=== PATIENT | female | born 1990 | race Caucasian/White ===

== ENCOUNTER 2019-07-17 12:05 | Emergency (ER) | payer OTHER ==
[2019-07-17 12:12] VITALS: BMI 27.4
--- NOTE | 2019-07-17 12:16 | PDOC ---
History of Present Illness - General Chief Complaint: Suicidal Stated Complaint: DEPRESSION, ANXIETY History Source: Patient Exam Limitations: No Limitations - History of Present Illness Initial Comments: 07/17/19 12:59 28 yo F with a hx of anxiety and depression (previously diagnosed; she does not remember the name of the psychiatrist; was on anti-depressants but has not used in "awhile") and PCOS (recently started on OCP) presents to the emergency department with suicidal ideation with plan. Per the patient, she lives with her mother who is diagnosed with cancer. Over the past few months, she states she has had worsening depression due to issues in her family and relationship she was in. The patient endorses that over the past "day or so" the thoughts of harming herself have intensified and she feels "unsafe to be alone". She states she has thought of harming herself. When I asked do you have thoughts of killing yourself, she said "yes". When I asked if she had a plan, she endorsed having multiple. When I asked her to elaborate on those plans, she declined. I asked the patient if ingestion is one of the plans and she said "yes". The patient denies previous psychiatric admissions. Endorses cutting herself in the past but denies overdose. Endorses the following on ROS: lightheadedness, chest tightness, depression, anxiety, chills, headaches, and nausea. Denies the following: fevers, visual disturbances, ears/nose/throat pain, SOB, abdominal pain, dysuria, hematuria, diarrhea, and leg pain/swelling. Allergies: NKDA Meds: OCP Social: ENdorses tobacco use. Uses alcohol. Uses marijuana but "not recently". 07/17/19 13:00 Past History - Past Medical History Allergies/Adverse Reactions: Allergies Allergy/AdvReac Type Severity Reaction Status Date / Time No Known Allergies Allergy Verified 07/17/19 12:11 COPD: No Psychiatric Problems: Yes (depression and anxiety) Other medical history: PCOS - Psycho Social/Smoking Cessation Hx Smoking History: Never smoked Review of Systems - Review of Systems Able to Perform ROS?: Yes Is the patient limited [place] proficient: No Constitutional: Yes: Chills. No: Diaphoresis, Fever, Weakness HEENTM: No: Eye Pain, Ear Pain, Nose Pain, Throat Pain, Mouth Pain Respiratory: No: Cough, Shortness of Breath, Hemoptysis Cardiac (ROS): Yes: Lightheadedness, Chest Tightness. No: Chest Pain, Palpitations ABD/GI: Yes: Nausea. No: Constipated, Diarrhea, Rectal Bleeding, Vomiting, Tarry Stools : No: Burning, Dysuria, Hematuria Musculoskeletal: No: Back Pain, Joint Pain, Neck Pain Integumentary: No: Bruising, Erythema, Rash Neurological: Yes: Headache. No: Numbness, Tingling, Tremors Psychiatric: No: Change in Appetite *Physical Exam - Vital Signs Last Vital Signs Temp Pulse Resp BP Pulse Ox 99 H 18 130/86 100 07/17/19 12:08 07/17/19 12:08 07/17/19 12:08 07/17/19 12:08 - Physical Exam General Appearance: Yes: Nourished, Appropriately Dressed. No: Apparent Distress, Intoxicated HEENT: positive: EOMI, GABRIELLE, Normal Voice, Symmetrical, Pharynx Normal, Hearing Grossly Normal. negative: Pale Conjunctivae, Scleral Icterus (R), Scleral Icterus (L), Muffled/Hoarse voice, Pharyngeal Erythema, Tonsillar Exudate, Tonsillar Erythema, Nasal Congestion, Rhinorrhea, Excessive drooling Neck: positive: Trachea midline, Supple. negative: Tender, Lymphadenopathy (R) , Lymphadenopathy (L), Tender lateral, Tender midline Respiratory/Chest: positive: Lungs Clear, Normal Breath Sounds. negative: Chest Tender, Respiratory Distress, Accessory Muscle Use, Crackles, Rales, Rhonchi, Stridor, Wheezing Cardiovascular: positive: Regular Rhythm, S1, S2, Tachycardia. negative: Systolic Murmur Gastrointestinal/Abdominal: positive: Normal Bowel Sounds, Flat, Soft. negative : Tender, Guarding, Rebound Lymphatic: negative: Adenopathy Musculoskeletal: positive: Normal Inspection. negative: CVA Tenderness, Vertebral Tenderness Extremity: positive: Normal Capillary Refill, Normal Inspection, Normal Range of Motion. negative: Tender, Swelling Integumentary: positive: Normal Color, Dry, Warm. 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 negative: Normal Mood/Affect (depressed mood. flat affect) ED Treatment Course - LABORATORY CBC & Chemistry Diagram: 07/17/19 14:10 07/17/19 14:10 Medical Decision Making - Medical Decision Making 07/17/19 13:[address] Ariza regarding the patient at approximately 12:55 pm. He states he will see the patient this afternoon. 07/17/19 13:42 I explained to the patient during the history and physical that because she endorses suicidal thoughts and states she has plans that she will need to be placed on a 1:1 observation. I also explained to her that her personal belongings will be stored including her phone. I was notified by nurse Promise that the patient wanted to speak to me. Promise was with me during the initial HP encounter. The patient was upset that we were taking her phone because she needed to call her mom still and possibly will have a phone call from her potential employer. I explained to the patient that it is hospital policy to have belongings secured. The patient stated that she never said she wanted to kill herself, contrary to her statement of wanting to kill herself to myself and Promise as witness. This was relayed to the patient. I again explained the need for involuntary hold until psychiatry sees her. She understood and accepted the plan at this time. Initial Vital Signs Pulse Resp BP Pulse Ox 99 H 18 130/86 100 07/17/19 12:08 07/17/19 12:08 07/17/19 12:08 07/17/19 12:08 Laboratory Tests 07/17/19 07/17/19 07/17/19 13:16 14:10 14:10 WBC RBC Hgb Hct MCV MCH MCHC RDW Plt Count MPV Absolute Neuts (auto) Neutrophils % Lymphocytes % Monocytes % Eosinophils % Basophils % Nucleated RBC % VBG pH POC VBG pCO2 POC VBG pO2 VBG HCO3 VBG O2 Sat (Kj) VBG Base Excess Sodium Potassium Chloride Carbon Dioxide Anion Gap BUN Creatinine Est GFR (CKD-EPI)AfAm Est GFR (CKD-EPI)NonAf Random Glucose Calcium Total Bilirubin AST ALT Alkaline Phosphatase Creatine Kinase Troponin I Total Protein Albumin TSH Serum , Qual Urine Color Urine Appearance Urine pH Ur Specific [place]reid Urine Protein Urine Glucose (UA) Urine Ketones Urine Blood Urine Nitrite Urine Bilirubin Urine Urobilinogen Ur Leukocyte Esterase Salicylates < 1.7 L Opiates Screen Negative Methadone Screen Negative Acetaminophen <2.0 Barbiturate Screen Negative Phencyclidine Screen Negative Ur Amphetamines Screen Negative MDMA (Ecstasy) Screen Negative Benzodiazepines Screen Negative Cocaine Screen Negative U Marijuana (THC) Screen Negative Alcohol, Quantitative < 3 07/17/19 07/17/19 07/17/19 14:10 14:10 14:10 WBC 5.4 RBC 4.19 Hgb 13.3 Hct 39.3 MCV 93.9 MCH 31.7 MCHC 33.8 RDW 12.9 Plt Count 252 MPV 7.2 L Absolute Neuts (auto) 3.9 Neutrophils % 72.2 Lymphocytes % 20.8 Monocytes % 6.3 Eosinophils % 0.2 Basophils % 0.5 Nucleated RBC % 0 VBG pH POC VBG pCO2 POC VBG pO2 VBG HCO3 VBG O2 Sat (Kj) VBG Base Excess Sodium 141 Potassium 3.7 Chloride 109 H Carbon Dioxide 25 Anion Gap 7 L BUN 5.9 L Creatinine 0.7 Est GFR (CKD-EPI)AfAm 137.62 Est GFR (CKD-EPI)NonAf 118.74 Random Glucose 85 Calcium 9.0 Total Bilirubin 0.4 AST 9 L ALT 15 Alkaline Phosphatase 36 L Creatine Kinase 60 Troponin I < 0.02 Total Protein 7.2 Albumin 4.2 TSH 0.71 Serum , Qual Negative Urine Color Urine Appearance Urine pH Ur Specific [place] Urine Protein Urine Glucose (UA) Urine Ketones Urine Blood Urine Nitrite Urine Bilirubin Urine Urobilinogen Ur Leukocyte Esterase Salicylates Opiates Screen Methadone Screen Acetaminophen Barbiturate Screen Phencyclidine Screen Ur Amphetamines Screen MDMA (Ecstasy) Screen Benzodiazepines Screen Cocaine Screen U Marijuana (THC) Screen Alcohol, Quantitative 07/17/19 07/17/19 14:10 16:30 WBC RBC Hgb Hct MCV MCH MCHC RDW Plt Count MPV Absolute Neuts (auto) Neutrophils % Lymphocytes % Monocytes % Eosinophils % Basophils % Nucleated RBC % VBG pH 7.39 POC VBG pCO2 40.1 POC VBG pO2 < 49 H VBG HCO3 23.9 VBG O2 Sat (Kj) 76.7 VBG Base Excess -0.4 Sodium Potassium Chloride Carbon Dioxide Anion Gap BUN Creatinine Est GFR (CKD-EPI)AfAm Est GFR (CKD-EPI)NonAf Random Glucose Calcium Total Bilirubin AST ALT Alkaline Phosphatase Creatine Kinase Troponin I Total Protein Albumin TSH Serum , Qual Urine Color Yellow Urine Appearance Clear Urine pH 8.5 H Ur Specific [place] 1.009 L Urine Protein Negative Urine Glucose (UA) Negative Urine Ketones 1+ H Urine Blood Negative Urine Nitrite Negative Urine Bilirubin Negative Urine Urobilinogen 0.2 Ur Leukocyte Esterase Negative Salicylates Opiates Screen Methadone Screen Acetaminophen Barbiturate Screen Phencyclidine Screen Ur Amphetamines Screen MDMA (Ecstasy) Screen Benzodiazepines Screen Cocaine Screen U Marijuana (THC) Screen Alcohol, Quantitative Patient is medically cleared Dr. Ariza evaluated the patient and discharged the patient to her mother Upon reassessment of the patient, she states she is not suicidal, homicidal, and having thoughts of harming herself. She will follow up with Dr. Ariza in outpatient or a psychiatrist of her choosing. Dispo: Discharge Discharge - Discharge Information Problems reviewed: Yes Clinical Impression/Diagnosis: Suicidal ideation, Depression Disposition: HOME - Admission No - Follow up/Referral Referrals: Silvino Ariza MD [Staff Physician] - - Patient Discharge Instructions Patient Printed Discharge Instructions: DI for Depression -- Adult, DI for Suicidal Ideation-Adult Additional Instructions: You were seen by Dr. Ariza who cleared you for admission. Please follow up with your primary medical doctor within 1 week after discharge. Please follow up with Dr. Ariza within 1 week after discharge. Please return to the emergency department if you have worsening symptoms or new concerning symptoms. Thank you. - Post Discharge Activity Work/Back to School Note: My Personal Safety Plan
[2019-07-17 14:25] LABS: VENOUS PC02 40.1 mmHg (38-52); VENOUS PH 7.39 (7.31-7.41)
[2019-07-17 14:26] LABS: BASO % 0.5 % (0-2.0); EOS % 0.2 % (0-4.5); HEMATOCRIT 39.3 % (32.4-45.2); HEMOGLOBIN 13.3 GM/dL (10.7-15.3); LYMPH % 20.8 % (8-40); MCH 31.7 pg (25.7-33.7); MCHC 33.8 g/dl (32.0-36.0); MEAN CELL VOLUME 93.9 fl (80-96); MEAN PLT VOLUME 7.2 fl (7.5-11.1); MONO % 6.3 % (3.8-10.2); NEUT % 72.2 % (42.8-82.8); PLATELET COUNT 252 K/MM3 (134-434); RBC 4.19 M/mm3 (3.60-5.2); RDW 12.9 % (11.6-15.6); WHITE BLOOD COUNT 5.4 K/mm3 (4.0-10.0)
[2019-07-17 14:27] LABS: VENOUS PO2 < 49 mmHg (28-48)
[2019-07-17 14:56] LABS: ALBUMIN 4.2 g/dl (3.4-5.0); ALK PHOS 36 U/L (45-117); ANION GAP 7 MMOL/L (8-16); BILIRUBIN,TOTAL 0.4 mg/dL (0.2-1); BLOOD UREA NITROGEN 5.9 mg/dL (7-18); CHLORIDE 109 mmol/L (98-107); CO2 25 mmol/L (21-32); CREATININE 0.7 mg/dL (0.55-1.3); GLUCOSE,RANDOM 85 mg/dL (74-106); POTASSIUM 3.7 mmol/L (3.5-5.1); SGOT/AST 9 U/L (15-37); SGPT/ALT 15 U/L (13-61); SODIUM 141 mmol/L (136-145); TOT PROT 7.2 g/dl (6.4-8.2)
--- NOTE | 2019-07-17 15:55 | PDOC ---
Documentation entered by Barbara Escudero SCRIBE, acting as scribe for Bert Larry MD. Bert Larry MD: This documentation has been prepared by the Kota chandra Nirvannie, SCRIBE, under my direction and personally reviewed by me in its entirety. I confirm that the documentation accurately reflects all work, treatment, procedures, and medical decision making performed by me. Attending Attestation - Resident Resident Name: Alex Nicole - ED Attending Attestation I have performed the following: I have examined & evaluated the patient, The case was reviewed & discussed with the resident, I agree w/resident's findings & plan, Exceptions are as noted - HPI HPI: 07/17/19 14:14 The patient is a 28 year old female, with a significant past medical history of anxiety/depression (not on medications, hx of cutting) and PCOS, who presents to the emergency department with, 1 day of suicidal ideation with plan. Patient notes she feels unsafe to be alone and endorses multiple plans to commit suicide but, refuses to elaborate. (upon resident questioning ingesting is one) . Patient notes her mother was recently diagnosed with cancer, further family issues, and relationship issues which she believe has worsened her depression. While in the ED, she notes associated lightheadedness, chest tightness, depression, anxiety, chills, headaches, and nausea. She denies any homicidal ideation or auditory/visual hallucinations. She denies any fevers, diarrhea, shortness of breath, or urinary symptoms. Allergies: NKDA Social history: Smoker, alcohol usage, marijuana usage (none recently). - Physicial Exam PE: 07/17/19 14:52 agree with resident exam - Medical Decision Making 07/17/19 13:54 28-year-old female with a history of anxiety and depression presents the emergency department with suicidal ideation. Patient initially reporting some chest tightness and generalized weakness, however those symptoms have since resolved. EKG is nonischemic. Case has been discussed with Dr. Ariza who will evaluate the patient this afternoon. In the meantime we will proceed with a medical work-up. Pt on 1:1 watch 07/17/19 15:55 Patient is medically cleared. We are awaiting psychiatric evaluation at this time. 07/17/19 16:[address] Ariza, not sure if he can evaluate her today, but will call us back in 1-2 hours to let us know 07/17/19 18:02 Pt has been evaluated by Dr. Ariza. She denies SI/HI, AH/VH and has a safe DC plan. She will go home with mom and f/u with outpt psych She is goal oriented and has a job interview tomorrow that she looks forward to attending Strict return precautions discussed with pt who expresses understanding I discussed the physical exam findings, ancillary test results and final diagnoses with the patient. I answered all of the patient's questions. The patient was satisfied with the care received and felt comfortable with the discharge plan and treatment plan. The patient will call their primary care physician within 24 hours to arrange follow-up and will return to the Emergency Department with any new, persistent or worsening symptoms.
[2019-07-17 16:45] LABS: PH,URINE 8.5 (5.0-8.0); URINE APPEARANCE CLEAR; URINE BILIRUBIN NEGATIVE (NEGATIVE); URINE COLOR YELLOW; URINE GLUCOSE (UA) NEGATIVE (NEGATIVE); URINE KETONE 1+ (NEGATIVE); URINE LEUK ESTERASE NEGATIVE (NEGATIVE); URINE NITRITE NEGATIVE (NEGATIVE); URINE PROTEIN NEGATIVE (NEGATIVE); URINE UROBILINOGEN 0.2 mg/dL (0.2-1.0)
[2019-07-17 17:20] LABS: COCAINE, UR NEGATIVE ng/ml (CUTOFF=300); METHADONE, UR NEGATIVE ng/ml (CUTOFF=300); OPIATES, URI NEGATIVE ng/ml (CUTOFF=300); PHENCYCLIDINE,URINE NEGATIVE ng/ml (CUTOFF=25); URINE AMPHETAMINES NEGATIVE ng/ml (CUTOFF=500); URINE BARBITURATES NEGATIVE ng/ml (CUTOFF=200); URINE BENZODIAZEPINES NEGATIVE ng/ml (CUTOFF=200)
--- NOTE | 2019-07-17 17:51 | CON.PSY ---
Psychiatry Consult Chief Complaint: I was feeling overwhelmed. never said I was going to kill mtself. I ahd a recent break up and looking for Jobs. I have a n intreview set upo for Tomorrow. Symptoms: reports: Depressed Mood - Previous Psychiatric Treatment Outpatient: Less than 6 mos ago Inpatient: None - Previous Substance Abuse Treatment Outpatient: None Inpatient: None - Reason for Previous Treatment Reason for Previous Treatment: Anxiety or Panic Disorder - Allergies Allergies: Allergies Allergy/AdvReac Type Severity Reaction Status Date / Time No Known Allergies Allergy Verified 07/17/19 12:11 - Current Living Status Usual Living Arrangement: With Parent - Current Mental Status Evaluation Appearance: Well Groomed Attitude: Cooperative - Affect Affect: Constrictive Appropriateness: Appropriate to Content - Mood Mood: Anxious - Speech/Language Expressive: Coherent - Psychomotor Activity Psychomotor Activity: Normal - Thought Process Thought Process: Intact - Thought Content Hallucinations: Absent Delusions: Absent - Self Perception Self Perception: No Impairment - Cognition Attention: Alert Orientation: Time Memory, Immediate Recall: Intact Memory, Short Term: 3/3 Memory, Remote with Promptin/3 - Concentration Serial Sevens Intact: Yes Simple Calculations Intact: Yes - Abstraction Proverb Interpretation: Intact Judgement: Intact - Insight Insight: Intact - Impulse Control Impulse Control: Good Control - Suicidal Ideation Suicidal Ideation: No - Homicidal Ideation Homicidal Ideation: No Assessment/Plan 10 Patient is not suicidal at this time, has no plans yo hurt herself. 2) will see her therapist this week, 3) discharge in care of her mother.
[2019-07-17 18:48] VITALS: BP 120/77; PULSE 97; TEMP 97.8
--- NOTE | 2019-07-18 14:49 | EKG ---
Test Reason : Blood Pressure : / mmHG Vent. Rate : 078 BPM Atrial Rate : 078 BPM P-R Int : 112 ms QRS Dur : 082 ms QT Int : 362 ms P-R-T Axes : 007 038 045 degrees QTc Int : 412 ms NORMAL SINUS RHYTHM NORMAL ECG NO PREVIOUS ECGS AVAILABLE Confirmed by RENETTA KIRK MD ([id number]) on 07/18/2019 2:49:02 PM Referred By: Confirmed By:RENETTA KIRK MD
== END 2019-07-17 18:48 | disposition home or self-care (01) ==
LOC: JER 12:05
DX: R45.851 Suicidal ideations (principal); F32.9 Major depressive disorder, single episode, unspecified
CPT/HCPCS: 36415; 80053; 80307; 81003; 82550; 82803; 84443; 84484; 84703; 85025; 87086; 93005; 93010; 99283-25